=== PATIENT | female | born 1995 | race African-American/Black ===

== ENCOUNTER 2025-03-11 10:28 | Emergency (ER) | payer OTHER ==
[2025-03-11 11:22] VITALS: BP 128/83; PULSE 80; RESP 20; TEMP 98.2; BMI 27.4
[2025-03-11] MEDS: ACETAMINOPHEN 325 MG TABLET (FP) PO ONE (11:22)
== END 2025-03-11 11:48 | disposition home or self-care (01) ==
LOC: FER 10:28
DX: S61.316A Laceration without foreign body of right little finger with damage to nail, initial encounter (principal); S69.91XA Unspecified injury of right wrist, hand and finger(s), initial encounter; W20.8XXA Other cause of strike by thrown, projected or falling object, initial encounter
CPT/HCPCS: 73110-TC-RT-FY; 73130-TC-RT-FY; 99283-25